=== PATIENT | female | born 1995 | race Caucasian/White ===

== ENCOUNTER 2023-08-15 11:14 | Emergency (ER) | payer OTHER, SELFPAY ==
[2023-08-15 12:11] VITALS: BP 109/78; PULSE 72; RESP 16; TEMP 36.7; O2SAT 100
--- NOTE | 2023-08-15 12:47 | ED.GENADULT ---
HPI - General Adult General Chief complaint: Unspecified Stated complaint: med.refill Time Seen by Provider: 08/15/23 12:50 Source: patient, RN notes reviewed and old records reviewed Mode of arrival: ambulatory Limitations: no limitations History of Present Illness HPI narrative: 28-year-old female presents to the [facility] requesting a medication refill that she has been out for over 2 months. Has not had blood pressure in approximately a year if not more. Patient has an appointment set up for September Patient states that she has had some increased body aches, fatigue and seeing if she can just get a refill due to just moving in the area Related Data Allergies Allergy/AdvReac Type Severity Reaction Status Date / Time No Known Allergies Allergy Mild Verified 08/15/23 11:26 Review of Systems Review of Systems: All systems reviewed & are unremarkable except as noted in HPI and below Constitutional: Constitutional: Reports as per HPI Eyes: Eyes: Reports no additional eye complaints ENT: Reports system reviewed and no additional complaints, except as documented Cardiovascular: Cardiovascular: Reports no additional cardiovascular complaints, Denies chest pain and Denies dyspnea Respiratory: Respiratory: Reports no additional respiratory complaints, Denies chest congestion, Denies cough and Denies dyspnea Gastrointestinal: Gastrointestinal: Reports no additional gastrointestinal complaints, Denies abdominal pain, Denies nausea and Denies vomiting Musculoskeletal: Musculoskeletal: Reports no additional musculoskeletal complaints Integumentary/Breasts: Skin/Breast: Reports system reviewed and no additional complaints, except as docu Neurologic: Reports system reviewed and no additional complaints, except as documented Psychiatric: Psychiatric: Reports no additional psychiatric complaints Allergic/Immunologic: Allergic/Immunologic: Reports no additional allergic/immunologic complaints PMFSH Comments At the time of my signature, I reviewed and agree with the nursing past medical, surgical, social, and family history. There is no relevant family history pertinent to the patient complaint. Exam Const: General: cooperative, healthy appearing, comfortable, no acute distress, well developed, alert and well nourished Nutritional Appearance: well nourished and obese Orientation/consciousness: patient oriented x3 Limitations: no limitations HENMT: Head: normal to inspection Ears: hearing grossly normal bilaterally and external ears normal Face/Nose/Sinus: Normal external nose present, Normal nares present, Normal nasal mucous membranes and turbinates present, normal facial exam and face symmetric Face and sinus: normal facial exam and face symmetric Eyes: General: appearance normal, both eyes and all related structures Alignment and Position: alignment normal Periorbital: periorbital findings normal Pupils: Equal, round and reactive pupils present EOM: EOMs intact bilaterally Neck: Neck: normal visual inspection, full ROM, no lymphadenopathy and no meningeal signs Chest: Chest palpation & inspection: normal inspection of the chest Resp: Effort & Inspection: normal respiratory effort and able to speak in complete sentences Cardio: Rate: regular rate Rhythm: regular rhythm Back/Spine/Pelvis: Cervical Spine: cervical ROM normal Skin: General skin exam: normal color and no rashes or lesions noted Lesions: no lesions Rashes: no rashes Wounds: no wounds Neuro: General: patient oriented x3, gait normal, tone normal, moves all extremities and no meningeal signs Cranial nerves: Yes Equal, round and reactive pupils present Cognition (Neuro): normal cognition Speech: normal speech Gait exam (Neuro): Normal gait present Extrem: General: normal to inspection, full ROM, capillary refill normal and normal gait Psych: Appearance: grossly normal and well kempt Mental Status: mental status grossly normal Speech and movement: N
== END 2023-08-15 13:01 | disposition home or self-care (01) ==
PROVIDERS: Emergency Provider Nurse Practitioner
DX: Z76.0 Encounter for issue of repeat prescription (principal); M79.10 Myalgia, unspecified site
CPT/HCPCS: 99211; G0463